=== PATIENT | female | born 1955 | race Caucasian/White ===

== ENCOUNTER 2021-10-04 21:15 | Inpatient (IN) ==
[2021-10-04] MEDS ORDERED: Heparin - STEMI 5,000 UNITS/ML 1 ml VIAL IV ONE (21:18)
[2021-10-04] MEDS ORDERED: NS 0.9% 1000 ml BAG 1,000 ML IV ONE (21:18)
[2021-10-04] MEDS ORDERED: Lidocaine 1% VIAL 10 MG/ML VIAL ONE (21:21)
[2021-10-04] MEDS ORDERED: VERAPAMIL 2.5 MG/ML 2 ML VIAL ** 5 mg/2 ml ONE (21:21)
[2021-10-04] MEDS ORDERED: Heparin 1,000 UNIT/ML 10 ml (10,000 UNITS) CATHLAB/DIALYSIS ONE (21:21)
[2021-10-04] MEDS ORDERED: Heparin 2 UNITS/ML 1000 mls 2,000 ML IV ONE (21:21)
[2021-10-04] MEDS ORDERED: Iohexol 350 (CONTRAST) 200 ML MDV IV ONE ×2 (21:22→21:41)
[2021-10-04 21:33] LABS: ABS Eosinophils 0.2 10^3/ul (0-0.6); ABS Lymphocytes 1.8 10^3/ul (1.0-4.8); ABS Monocytes 0.5 10^3/ul (0-0.8); ABS Neutrophils 5.5 10^3/ul (1.5-7.7); Eosinophil % 2.1 %; Hematocrit 43 % (35-47); Hemoglobin 14.4 g/dL (12.0-16.0); Lymphocyte % 22.3 %; Mean Corpuscular HGB Conc 34 g/dL (31-36); Mean Corpuscular Hemoglobin 30 pg (27-31); Mean Corpuscular Volume 89 fL (80-97); Platelet Count 198 10^3/uL (150-450); Red Blood Count 4.81 10^6 /uL (3.70-4.87); Red Cell Distribution Width 14 % (10-15)
[2021-10-04] MEDS ORDERED: Midazolam 5 mg/5 ml VIAL 1 mg/ml 5 ml VIAL (5 mg) ONE (21:35)
[2021-10-04] MEDS ORDERED: fentaNYL 100 mcg/2 ml 50 MCG/ML VIAL ONE (21:35)
[2021-10-04] MEDS ORDERED: nitroGLYCERIN DRIP 25,000 MCG/250 ML BTL ONE (21:35)
[2021-10-04 21:46] LABS: Activated Partial Thrombo Time 27.1 seconds (26.0-38.0); INR 1.13 (0.86-1.15)
[2021-10-04 21:55] LABS: Troponin I 0.13 ng/mL (<0.03)
[2021-10-04] MEDS ORDERED: Bivalirudin 250 MG VIAL ONE (22:00)
[2021-10-04 22:07] LABS: ALT 14 U/L (7-52); AST 16 U/L (13-39); Albumin 4.7 g/dL (3.2-5.2); Albumin/Globulin Ratio 2.1 (1-3); Alkaline Phosphatase 65 U/L (35-149); Anion Gap 7 mmol/L (2-11); Blood Urea Nitrogen 22 mg/dL (6-24); CO2 Carbon Dioxide 29 mmol/L (22-32); Calcium 9.4 mg/dL (8.6-10.3); Chloride 104 mmol/L (101-111); Globulin 2.2 g/dL (2-4); Glucose 167 mg/dL (70-100); LDL Cholesterol Direct 147 mg/dL; Magnesium 2.3 mg/dL (1.9-2.7); Potassium 3.4 mmol/L (3.5-5.0); Sodium 140 mmol/L (135-145); Total Protein 6.9 g/dL (6.4-8.9); eGFR CKD-EPI 71.8 (>60)
[2021-10-04] MEDS ORDERED: NS 0.9% 1000 ml BAG 1,000 ML IV SCH (22:30)
[2021-10-05 00:25] LABS: Troponin I 0.85 ng/mL (<0.03)
[2021-10-05 04:57] LABS: ABS Eosinophils 0.1 10^3/ul (0-0.6); ABS Lymphocytes 1.4 10^3/ul (1.0-4.8); ABS Monocytes 0.6 10^3/ul (0-0.8); ABS Neutrophils 5.7 10^3/ul (1.5-7.7); Eosinophil % 0.7 %; Hematocrit 39 % (35-47); Hemoglobin 12.6 g/dL (12.0-16.0); Lymphocyte % 17.6 %; Mean Corpuscular HGB Conc 33 g/dL (31-36); Mean Corpuscular Hemoglobin 29 pg (27-31); Mean Corpuscular Volume 91 fL (80-97); Mean Platelet Volume 9.7 fL (7.4-10.4); Nucleated Red Blood Cells % 0.1; Platelet Count 167 10^3/uL (150-450); Red Blood Count 4.29 10^6 /uL (3.70-4.87); Red Cell Distribution Width 14 % (10-15); White Blood Count 7.7 10^3/uL (3.5-10.8)
[2021-10-05 05:02] LABS: Troponin I 4.48 ng/mL (<0.03)
[2021-10-05 05:07] LABS: Albumin 3.8 g/dL (3.2-5.2); Calcium 8.6 mg/dL (8.6-10.3); Globulin 1.9 g/dL (2-4); HDL Cholesterol 37.3 mg/dL; Potassium 3.5 mmol/L (3.5-5.0); Total Bilirubin 0.5 mg/dL (0.2-1.0); Total Protein 5.7 g/dL (6.4-8.9); eGFR CKD-EPI 100.4 (>60)
[2021-10-05] MEDS ORDERED: Metoclopramide 5 MG/ML VIAL (10 mg) IV SLOW PU PRN (05:07)
[2021-10-05] MEDS ORDERED: Warfarin per PHARMACY **NOTE FOLLOW UP SCH (10:00)
[2021-10-05] MEDS: Enoxaparin 100 MG/ML SYR SUBCUT SCH ×2 (10:24→21:12)
[2021-10-05 11:09] LABS: Troponin I 5.76 ng/mL (<0.03)
[2021-10-06 05:41] LABS: INR 1.12 (0.86-1.15)
[2021-10-06] MEDS ORDERED: Potassium Chlor 20 meq TAB.ER PO ONE (08:09)
[2021-10-06] MEDS: Enoxaparin 100 MG/ML SYR SUBCUT SCH (09:57)
[2021-10-06] MEDS ORDERED: Enoxaparin 30 MG/0.3 ML SYR ONE (13:50)
[2021-10-06 15:21] VITALS: BP 134/61
[2021-10-06] MEDS ORDERED: Warfarin DAILY REMINDER **NOTE FOLLOW UP SCH (17:00)
== END 2021-10-06 17:40 | disposition home or self-care (01) | DRG 174 ==
LOC: ED 21:15 → CHICATH 21:50 → ICU 23:04 → MEDTELE 10-05 15:57
PROVIDERS: ATTEND Internal Medicine